=== PATIENT | female | born 1995 | race Caucasian/White ===

== ENCOUNTER → 2020-11-21 | Outpatient (CLI) | payer BC ==
[~2020-11-21] MED LIST: ADD MED; CARAFATE 1GM1 G PO; CEPHALEXIN500 M1 PO; IBU600 MG PO; NORCO 325 MG-51 TAB PO; PRENATAL; SEPTRA 200 MG/200 ML PO
== END ==
LOC: ZCOL.LAB 08:39
DX: Z20.822 Contact with and (suspected) exposure to COVID-19 (principal)

== ENCOUNTER 2020-11-23 02:21 | Outpatient (CLI) | payer BC ==
[~2020-11-23] VITALS: Wt 94.5 kg
[~2020-11-23 02:21] MED LIST changes: -CARAFATE 1GM1 G PO; -CEPHALEXIN500 M1 PO; -IBU600 MG PO; -NORCO 325 MG-51 TAB PO; -PRENATAL
[2020-11-23 03:20] VITALS: BP 112/68; TEMP 98
--- NOTE | 2020-11-23 04:04 | NUR ---
DR REYES AT BEDSIDE. SVE PERFORMED . PATIENT WILL DISCHARGE HOME PER DR. REYES'S ORDER
== END 2020-11-23 03:40 | disposition home or self-care (01) ==
LOC: LDRO 02:21 → LDR 02:40 → LDRO 03:40
DX: O62.9 Abnormality of forces of labor, unspecified (principal); Z3A.40 40 weeks gestation of pregnancy
CPT/HCPCS: OP

== ENCOUNTER 2020-11-24 15:15 | Inpatient (IN) | payer BC ==
[~2020-11-24] VITALS: Ht 165.1 cm; Wt 95.0 kg
[2020-11-25] VITALS (42 sets, daily range): BP systolic 97–156; BP diastolic 54–79; PULSE 73–129; TEMP 97.6–98.3
--- NOTE | 2020-11-25 06:30 | NUR ---
Pt arrived on unit ambulatory for scheduled induction of labor. Pt reports occasional contractions, denies any leaking of fluid or vaginal bleeding and reports normal movement. EFM and toco monitors started. Vital signs WNL. Plan of care for induction reviewed. IV started and labs obtained. Consents signed and pitocin started as ordered. See EMAR for details.
[2020-11-25] MEDS ORDERED: PRENATAL (07:36)
[2020-11-25] MEDS ORDERED: CARAFATE 1GM1 G PO (07:36)
[2020-11-25 07:46] LABS: BASO % 0.2 % (0.0-2.0); EOS # 0.1 (0.0-0.7); EOS % 0.7 % (0-4.0); GRAN # 7.8 (1.4-6.5); GRAN % 75.4 % (42.2-75.2); HEMATOCRIT 38.5 % (37.0-47.0); HEMOGLOBIN 12.5 g/dl (12.5-16.0); LYMPH # 1.8 (1.2-3.4); MEAN CELL VOLUME 85 fl (80.0-100.0); MEAN CORPUSCULAR HEMOGLOBIN 28 pg (27.0-31.0); MEAN CORPUSCULAR HGB CONC 33 g/dl (33.0-37.0); MEAN PLATELET VOLUME 10.7 fl (7.4-10.4); MONO # 0.7 (0.1-0.6); MONO % 6.3 % (1.7-9.3); PLATELET COUNT 304 K/mm3 (130-400); RED BLOOD COUNT 4.51 M/mm3 (4.10-5.30); REDCELL DISTRIBUTION WIDTH-CV 14.5 % (11.5-14.5)
--- NOTE | 2020-11-25 08:27 | NUR ---
Dr. Flanagan at the bedside. FHR tracing reviewed. SVE done /-2. AROM with clear fluid per Dr. Flanagan. Plan of care reviewed.
--- NOTE | 2020-11-25 09:30 | NUR ---
Pt up to the birthing ball. Difficult tracing FHR. This RN at the bedside with frequent attempts to adjust EFM. FHR audible in the 130's.
--- NOTE | 2020-11-25 10:30 | NUR ---
1030- Pt sitting up on the edge of the bed for epidural placement. 1032- LENO Murphy at the bedside. Information reviewed and time out done. 1047- Test dose done per LENO Murphy at the bedside. See anesthesia records for details. 1053- Assisted pt back to supine position with left wedge. EFM and toco monitors adjusted.
--- NOTE | 2020-11-25 15:03 | NUR ---
1503- SVE by this RN +2. 1504- Dr. Flanagan notified of pt's status with SVE, FHR tracing and ctx pattern reviewed. 1510- staff veterinarian and nursery notified of pt's status. 1512- Vaz removed without complications. 1515- Pushing instructions reviewed and pushing started. 1524- Spoke with Dr. Flanagan for an update on pushing. 1544- Dr. Flanagan at the bedside and pushing with pt. 1555- Pt set up for delivery and nursery called to room. 1601- of viable female . Mullan placed on mom's abdomen. Cords clamped and cut. Care of the given to nursery RN at the bedside. 1605- of placenta. Pitocin started at 333ml/hr per order and protocol. Fundus firm and lochia WNL per Dr. Flanagan.
[2020-11-26 04:15] VITALS: BP 106/63; PULSE 87; TEMP 98.2
[2020-11-26 08:45] VITALS: BP 112/58; PULSE 94; TEMP 97.8
[2020-11-26] MEDS ORDERED: IBU600 MG PO (08:47)
--- NOTE | 2020-11-26 10:20 | NUR ---
Initial visit; Parents thanked Student Records Coordinator for offering congratulations and God's blessings for the of their daughter. Student Records Coordinator thanked family for choosing [facility].
[2020-11-26 16:26] VITALS: BP 116/75; PULSE 86; TEMP 97.8
[2020-11-26 21:10] VITALS: BP 111/55; PULSE 82; TEMP 97.8
[2020-11-27 08:05] VITALS: BP 105/59; PULSE 87; TEMP 98.1
== END 2020-11-27 12:20 | disposition home or self-care (01) | DRG 807 ==
LOC: OB 15:15 → LDR 11-25 06:20 → OB 11-25 08:18 → LDR 11-25 16:43 → OB 11-25 19:30
PROVIDERS: ADMIT Obstetrics & Gynecology
PROC: 10E0XZZ Delivery of Products of Conception, External Approach (ICD-10-PCS; principal; 2020-11-25)
PROC: 10907ZC Drainage of Amniotic Fluid, Therapeutic from Products of Conception, Via Natural or Artificial Opening (ICD-10-PCS; 2020-11-25)
PROC: 0HQ9XZZ Repair Perineum Skin, External Approach (ICD-10-PCS; 2020-11-25)
DX: O48.0 Post-term pregnancy (principal); Z37.0 Single live birth; F41.9 Anxiety disorder, unspecified; O70.0 First degree perineal laceration during delivery; O99.344 Other mental disorders complicating childbirth; O74.5 Spinal and epidural anesthesia-induced headache during labor and delivery; Z3A.40 40 weeks gestation of pregnancy; G43.909 Migraine, unspecified, not intractable, without status migrainosus
CPT/HCPCS: J2590; J2791; J7120

== ENCOUNTER 2020-12-04 22:33 | Observation (INO) | payer BC ==
[~2020-12-04] VITALS: Ht 165.1 cm; Wt 95.5 kg
[~2020-12-04 22:33] MED LIST changes: +CARAFATE 1GM1 G PO; +IBU600 MG PO; +PRENATAL
[2020-12-04 23:15] LABS: BASO % 0.3 % (0.0-2.0); EOS # 0.1 (0.0-0.7); EOS % 0.5 % (0-4.0); GRAN # 10.7 (1.4-6.5); GRAN % 88.8 % (42.2-75.2); HEMOGLOBIN 11.9 g/dl (12.5-16.0); LYMPH # 0.7 (1.2-3.4); LYMPH % 5.8 % (20.0-51.0); MEAN CELL VOLUME 85 fl (80.0-100.0); MEAN CORPUSCULAR HEMOGLOBIN 27 pg (27.0-31.0); MEAN CORPUSCULAR HGB CONC 32 g/dl (33.0-37.0); MEAN PLATELET VOLUME 9.5 fl (7.4-10.4); MONO # 0.5 (0.1-0.6); MONO % 4.3 % (1.7-9.3); PLATELET COUNT 398 K/mm3 (130-400); RED BLOOD COUNT 4.34 M/mm3 (4.10-5.30); REDCELL DISTRIBUTION WIDTH-CV 13.6 % (11.5-14.5)
[2020-12-04 23:25] LABS: COLLECTION METHOD CLEAN CATCH
[2020-12-04 23:27] LABS: ALBUMIN 4.2 gm/dL (3.5-5.0); BILIRUBIN,TOTAL 0.2 mg/dL (0.0-1.0); C-REACTIVE PROTEIN 1.9 mg/dL (0.0-0.9); CALCIUM 9.9 mg/dL (8.4-10.2); CREATININE, serum 0.71 (0.52-1.25); POTASSIUM 4.2 mmol/L (3.4-5.0); TOTAL PROTEIN 7.6 gm/dL (6.4-8.2)
[2020-12-04 23:37] LABS: MUCOUS Present /lpf; PH 7 (5-8); SQUAMOUS EPITHELIAL 0-2 /hpf; URINE APPEARANCE Hazy; URINE BACTERIA None Seen /hpf; URINE BILIRUBIN Negative (NEGATIVE); URINE BLOOD 3+ (NEGATIVE); URINE COLOR Yellow; URINE GLUCOSE Negative (NEGATIVE); URINE KETONE Negative (NEGATIVE); URINE LEUKOCYTE ESTERASE 3+ (NEGATIVE); URINE NITRATE Negative (NEGATIVE); URINE PROTEIN(semi-quant) Negative (NEGATIVE); URINE UROBILINOGEN Negative (NEGATIVE)
[2020-12-05 05:50] VITALS: BP 108/57; PULSE 105; TEMP 101.4
--- NOTE | 2020-12-05 06:09 | NUR ---
PATIENT ARRIVED TO UNIT FROM ED. 2 WEEKS POST- PRESENT WITH GENERAL MALAISE. TEMP MAX 101.4 TYLENOL 650 MG PO GIVEN. IVF NS@125ML/HR STARTED. PATIENT ORIENTED TO ROOM. CALL LIGHT IN REACH, BED LOW POSITION AND LOCKED. BREAST PUMP AT BEDSIDE. INDEPENDENT IN ROOM. WILL CONTINUE TO MONITOR.
[2020-12-05 08:00] VITALS: BP 127/68; PULSE 111; TEMP 101.4
[2020-12-05] MEDS ORDERED: CEPHALEXIN500 M1 PO (09:23)
--- NOTE | 2020-12-05 10:59 | NUR ---
Discharge paperwork reviewed with the patient and at the bedside. Patient verbalized an understanding to follow doctors orders. IV removed, tip intact. Patient waiting to meet with the corporate health consultant before being discharged home. No further needs expressed from the patient. Call light within reach
--- NOTE | 2020-12-05 12:06 | NUR ---
First visit from the supervisor farm equipment maintenance. No needs right now.
[2020-12-05 12:31] VITALS: BP 125/65; PULSE 110; TEMP 101.2
--- NOTE | 2020-12-05 13:01 | NUR ---
Patient taken by wheelchair to vehicle by nursing staff. Discharge paperwork and personal belongings with the patient. No further needs expressed from the patient.
--- NOTE | 2020-12-05 16:55 | NUR ---
1015 DR REYES ASKED THAT NURSING STAFF PLEASE HELP PATIENT WITH PUMPING SHE HAS MASTITIS AND REPORTS OVERPRODUCTION. RN AT BEDSIDE WITH PATIENT. PATIENT REPORTS BAD HEADACHE AND IS UNABLE TO OPEN EYES D/T LIGHT SENSITIVITY. PATIENT WILLING TO TALK TO RN AT THIS TIME. PATIENT'S SPOUSE PRESENT WELL. PATIENT REPORTS PUMPING APPROXIMATELY 18OZ EVERY 3-4HRS, DENIES SELF BREAST MASSAGE D/T SEVERE PAIN, CRACKED NIPPLE ON RIGHT SIDE. SHE ALSO STATES THAT SHE FEELS THAT FLANGE IS TOO SMALL, STATING SHE STARTED WITH A SIZE 24 THEN ORDERED A SIZE 27 AND IS CURRENTLY USING. SHE SAID SHE ORDERED A SIZE 30 AND SHOULD BE DELIVERED TO HER HOUSE TODAY. RN WENT OVER HOW FLANGE SHOULD FIT PROPERLY AND PATIENT AND SPOUSE VERBALIZED UNDERSTANDING. PATIENT ALSO STATES THAT HER MILK "JUST KEEPS COMING WHEN I'M DONE PUMPING" AND SHE IS SATURATING BREAST PADS AND CLOTHERS. RN DISCUSSED THE NEED TO ALLOW NIPPLES TO DRY AND AVOID CONSTANT MOISTURE, ESPECIALLY TO CRACKED NIPPLE. RN AND PATIENT DISCUSSED THE FOLLOWING PLAN FOR PUMPING. PUMP EVERY 3HRS, SELF BREAST MASSAGE PRIOR TO PUMPING AND THEN AT 5MIN AND 10MIN, WARM COMPRESS FOR NO MORE THEN 2MIN ON BREAST PRIOR TO PUMPING AND ICE PACKS BETWEEN PUMPING TO RELIEVE PAIN AND DISCOMFORT. LIMIT PUMPINGS TO 15MIN. RN ASKED PATIENT IF SHE WOULD BE WILLING TO CALL THIS RN WHEN SHE WAS READY TO PUMP AGAIN SO THAT THIS RN COULD HELP AND ENSURE PROPER FLANGE FIT. 1220 THIS RN AT BEDSIDE PATIENT STATES THAT SHE WAS READY TO PUMP AGAIN. RN AT BEDSIDE FOR APPROXIMATELY 5MIN, PATIENT PUMPED >8OZ AT THIS TIME. IT WAS NOTED THAT THE PROPER FIT OF FLANGE WAS ACHIEVED ON LEFT SIDE, AND IT APPEARED THAT THE RIGHT SIDE NEEDED A LARGER FLANGE. PATIENT VERBALIZED UNDERSTANDING AND THE NEED TO USE THE LARGER SIZE OF THE RIGHT SIDE.
== END 2020-12-05 13:04 | disposition home or self-care (01) ==
LOC: COL.ER 22:33 → MEDICAL 12-05 03:07
PROVIDERS: Emergency Medicine; ADMIT Obstetrics & Gynecology
DX: N61.0 Mastitis without abscess (principal); R50.9 Fever, unspecified; G43.909 Migraine, unspecified, not intractable, without status migrainosus; F41.9 Anxiety disorder, unspecified
CPT/HCPCS: G0378; J0696; J1885; J2270; J7030

== ENCOUNTER 2020-12-23 06:51 | Day surgery (SDC) | payer BC ==
[2020-12-23] VITALS (9 sets, daily range): BP systolic 90–111; BP diastolic 46–62; PULSE 58–79; TEMP 97.8–98.4
[~2020-12-23] VITALS: Ht 162.6 cm; Wt 83.0 kg
[~2020-12-23 06:51] MED LIST changes: +CEPHALEXIN500 M1 PO
--- NOTE | 2020-12-23 10:55 | NUR ---
Patient returns to room 4 per cart from PACU accompanied by Lexy ADLER. Arouses to verbal stimuli. IV fluids infusing. On oxygen at 2L per nasal cannula. Siderails up x2 and call light in reach. Spouse in room. Bandaids x3 on abdomen clean and dry. Allowed to rest.
--- NOTE | 2020-12-23 11:10 | NUR ---
Resting and offers no complaints of pain or nausea. Spouse remains in the room.
--- NOTE | 2020-12-23 11:25 | NUR ---
Medicated with [place] 5mg one tab for complaints of incisional pain. Eating pudding and drinking Sprite and water. Denies nausea.
--- NOTE | 2020-12-23 11:40 | NUR ---
Resting when not disturbed. Spouse in room.
--- NOTE | 2020-12-23 11:55 | NUR ---
Continues to rest when not disturbed.
--- NOTE | 2020-12-23 12:25 | NUR ---
Continues to rest without further complaints of pain or nausea.
--- NOTE | 2020-12-23 13:05 | NUR ---
Awake and drinking water. States that the pain medication worked.
--- NOTE | 2020-12-23 13:10 | NUR ---
Assisted up to the bathroom and gait is steady. Voids and returns to room. IV discontinued and site is free of redness or swelling. Patient dresses self. Denies nausea. Given dismissal instructions and voices understanding of these. Provided office number for Dr. Carvajal for any questions or concerns Also provided office number for Dr. Moses who will be scheduling an ERCP on 12/25/2020. Given information sheet on ERCP.
--- NOTE | 2020-12-23 13:35 | NUR ---
Dismissal instructions signed and voices understanding of these.
--- NOTE | 2020-12-23 13:38 | NUR ---
Patient dismissed to home driven by spouse and taken to the front door per wheelchair and assisted into vehicle by this RN with instructions in hand.
== END 2020-12-23 13:38 | disposition home or self-care (01) ==
LOC: SDCO 06:51
DX: K80.10 Calculus of gallbladder with chronic cholecystitis without obstruction (principal); K80.45 Calculus of bile duct with chronic cholecystitis with obstruction; F32.9 Major depressive disorder, single episode, unspecified; F41.9 Anxiety disorder, unspecified; Z79.899 Other long term (current) drug therapy; Z20.822 Contact with and (suspected) exposure to COVID-19
CPT/HCPCS: J0690; J1100; J1885; J2405; J2704; J3010; J7120; Q9967

== ENCOUNTER 2020-12-25 11:59 | Day surgery (SDC) | payer BC ==
[~2020-12-25] VITALS: Ht 162.6 cm; Wt 83.1 kg
[2020-12-25] VITALS (10 sets, daily range): BP systolic 92–116; BP diastolic 57–75; PULSE 56–80; TEMP 97.7–98.2
[2020-12-25] MEDS ORDERED: NORCO 325 MG-51 TAB PO (12:47)
--- NOTE | 2020-12-25 12:49 | NUR ---
TO RM AT 1240- CALL LIGHT IN REACH AT BEDSIDE.
--- NOTE | 2020-12-25 14:00 | NUR ---
TO BAY 6 PER CART FOLLOWING AN ERCP. AMBULATED TO RECLINER AND ELEVATED FEET AND RELINED PATIENT BACK. C/O PAIN 09/13 ON ADMISSION. AT BEDSIDE.
--- NOTE | 2020-12-25 14:15 | NUR ---
RECEIVED WATER AND TAKING SIPS. NO CHANGES
--- NOTE | 2020-12-25 14:30 | NUR ---
C/O PAIN 09/13,BUT IS NOW IN HER BACK.
--- NOTE | 2020-12-25 14:45 | NUR ---
RECEIVED DANTE. PUELISHAING.
--- NOTE | 2020-12-25 15:00 | NUR ---
ATE 100% AND TOLERATED WELL. RESTING AND USING ELECTRONIC DEVICE(PHONE). NO NEW OR INCREASE IN PAIN.
--- NOTE | 2020-12-25 15:30 | NUR ---
RECEIVED WARM BLANKET AND PILLOW. RECEIVED WARM BLANKET
--- NOTE | 2020-12-25 16:00 | NUR ---
PATIENT SLEEPING QUIELTY IN RECLINER AND SLEEPING QUIETLY IN CHAIR.
--- NOTE | 2020-12-25 17:00 | NUR ---
NO CHANGES IN PAIN. RECEIVED DISCHARGE INSTRUCTIONS AND VERBALIZED UNDERSTANDING DISCONTINUED IV AND INT- CATHETER INTACT. PATIENT GETTING DRESSED.
--- NOTE | 2020-12-25 17:13 | NUR ---
DISCHARGED PER WC BY NURSING STAFF TO PRIVATE CAR IN CARE OF GEROD.
== END 2020-12-25 17:14 | disposition home or self-care (01) ==
LOC: SDCO 11:59
DX: K80.51 Calculus of bile duct without cholangitis or cholecystitis with obstruction (principal); K21.9 Gastro-esophageal reflux disease without esophagitis; G43.909 Migraine, unspecified, not intractable, without status migrainosus; G25.81 Restless legs syndrome; G47.30 Sleep apnea, unspecified; F90.9 Attention-deficit hyperactivity disorder, unspecified type; F32.9 Major depressive disorder, single episode, unspecified; F41.9 Anxiety disorder, unspecified; Z90.49 Acquired absence of other specified parts of digestive tract
CPT/HCPCS: C1769; J2704; J3010; J7120; Q9967

== ENCOUNTER 2022-09-22 06:32 | Inpatient (IN) | payer BC ==
[~2022-09-22] VITALS: Ht 162.6 cm; Wt 99.1 kg
[2022-09-22] VITALS (37 sets, daily range): BP systolic 98–134; BP diastolic 50–78; PULSE 84–112; TEMP 97.7–98.5
[~2022-09-22 06:32] MED LIST changes: +NORCO 325 MG-51 TAB PO
--- NOTE | 2022-09-22 06:50 | NUR ---
PT AMBULATORY TO UNIT FOR INDUCTION OF LABOR. PT DENIES BLEEDING, DENIES REGULAR CONTRACTIONS, DENIES LEAKING OF FLUID, AND DENIES DECREASED MOVEMENT. EFM AND TOCO APPLIED AND MATERNAL VITALS OBTAINED. CONSENTS SIGNED AND ALL QUESTIONS ANSWERED.
[2022-09-22] MEDS ORDERED: PRENATAL TABLET PO (07:01)
[2022-09-22 07:50] LABS: BASO % 0.3 % (0.0-2.0); EOS # 0.1 K/mm3 (0.0-0.7); EOS % 0.5 % (0.0-4.0); GRAN # 8.4 K/mm3 (1.4-6.5); GRAN % 75.7 % (42.2-75.2); HEMOGLOBIN 11.3 g/dl (12.5-16.0); LYMPH # 1.8 K/mm3 (1.2-3.4); LYMPH % 16.5 % (20.0-51.0); MEAN CELL VOLUME 82 fl (80.0-100.0); MEAN CORPUSCULAR HEMOGLOBIN 26 pg (27-31); MEAN CORPUSCULAR HGB CONC 32 g/dl (33.0-37.0); MEAN PLATELET VOLUME 10.5 fl (7.4-10.4); MONO # 0.7 K/mm3 (0.1-0.6); MONO % 6.5 % (1.7-9.3); PLATELET COUNT 275 K/mm3 (130-400); RED BLOOD COUNT 4.29 M/mm3 (4.10-5.30); REDCELL DISTRIBUTION WIDTH-CV 14.8 % (11.5-14.5)
[2022-09-22 07:51] LABS: HEMATOCRIT 35.3 % (37.0-47.0)
--- NOTE | 2022-09-22 10:09 | NUR ---
PT SITTING UPRIGHT ON THE EDGE OF BED FOR EPIDURAL PLACEMENT. AWNING FINISHER AT BEDSIDE. EFM AND TOCO TRACING INTERMITTENTLY DUE TO MATERNAL POSITIONING. PULSE OX APPLIED AND BP CYCLING Q5 MINS. TEST DOSE AT 1009. PT TOLERATED PROCEDURE WELL.
--- NOTE | 2022-09-22 11:40 | NUR ---
RN AT BEDSIDE. HEART TONES TRACING INTERMITTENTLY DUE TO MATERNAL MOVEMENT AND POSITIONING. SCALP ELECTRODE APPLIED RN TO TRACE HEART TONES MORE ACCURATELY.
--- NOTE | 2022-09-22 13:07 | NUR ---
DR. REYES AT BEDSIDE. SVE:5-6CM/100/-2. IUPC APPLIED TO ASSESS CONTRACTIONS. PITOCIN TURNED UP TO 14MU. PT IN AGREEMENT WITH PLAN OF CARE.
--- NOTE | 2022-09-22 14:47 | NUR ---
1420- SVE: PT COMPLETE AND +1 1430- MD NOTIFIED 1436- [facility]TMAN REMOVED 1443- DR. REYES ON UNIT. PUSHING WITH . RN REMAINS AT BEDSIDE THROUGHOUT PUSHING 1457- SPONTANEOUS VAGNIAL DELIVERY OF VIABLE MALE . NUCHAL CORD X 1. BABY PLACED ON MATERNAL ABDOMEN. CORD CLAMPED AND FATHER CUT CORD. 1500- SPONTANEOUS DELIVERY OF PLACENTA SUPRAFICIAL PERINEAL TEAR NOTED. ONE STICH REPAIR PER MD.
--- NOTE | 2022-09-22 17:15 | NUR ---
PT UP TO BATHROOM VIA [employer]!. PT DENIES LIGHTHEADEDNESS. PT VOIDED 800ML, CLEANED, AND DRESSES IN CLEAN GOWN. PT TRANSFERRED VIA [employer] TO ROOM ACCOMPANIED BY THIS RN AND FATHER. PT TRANSFERRED TO BED AND EDUCATED ON FALL PREVENTION.
[2022-09-23] VITALS: BP 105/51; PULSE 92; TEMP 98
[2022-09-23 04:15] VITALS: BP 99/54; PULSE 94; TEMP 97.8
[2022-09-23 07:30] VITALS: BP 104/51; PULSE 89; TEMP 97.8
[2022-09-23 12:00] VITALS: BP 110/68; PULSE 80
--- NOTE | 2022-09-23 16:28 | NUR ---
D/C PAPERWORK REVIEWED AND SIGNED. NO QUESTIONS OR CONCERNS AT THIS TIME.
== END 2022-09-23 17:10 | disposition home or self-care (01) | DRG 806 ==
LOC: OB 06:32 → LDR 06:32 → OB 09:17
PROVIDERS: ADMIT Obstetrics & Gynecology
PROC: 10E0XZZ Delivery of Products of Conception, External Approach (ICD-10-PCS; principal; 2022-09-22)
PROC: 0HQ9XZZ Repair Perineum Skin, External Approach (ICD-10-PCS; 2022-09-22)
PROC: 10907ZC Drainage of Amniotic Fluid, Therapeutic from Products of Conception, Via Natural or Artificial Opening (ICD-10-PCS; 2022-09-22)
PROC: 3E033VJ Introduction of Other Hormone into Peripheral Vein, Percutaneous Approach (ICD-10-PCS; 2022-09-22)
DX: O99.344 Other mental disorders complicating childbirth (principal); O99.354 Diseases of the nervous system complicating childbirth; Z37.0 Single live birth; O70.0 First degree perineal laceration during delivery; G43.909 Migraine, unspecified, not intractable, without status migrainosus; F41.9 Anxiety disorder, unspecified; O69.81X0 Labor and delivery complicated by cord around neck, without compression, not applicable or unspecified; Z3A.39 39 weeks gestation of pregnancy; Z86.16 Personal history of COVID-19
CPT/HCPCS: J1200; J2540; J2590; J2791; J2795; J3010; J7120